=== PATIENT | male | born 1995 | race Caucasian/White ===

== ENCOUNTER 2025-01-12 21:09 | Inpatient (IN) | payer BC, SELFPAY ==
--- OUTSIDE RECORDS SUMMARY | 2025-01-12 10:46 | XMS_ITS | Continuity of Care Document ---
Author Organization [facility] Address [address] [address] [place] [address] Phone Care Team Providers Care Pet Sitter Name Role Phone Paulo Kramer MD, Kosta Dominguez Unavailabl e Allergies, Adverse Reactions, Alerts Substance Reaction Status Criticality No Known Allergies Active No Inform ation Medications Medication Instructions Dosage Effective Dates (start - stop) Status Comments balsalazide 750 mg capsule take 3 capsule by oral route 3 times every day 2250 MG - Active Needs OV and labs for further refills. VITAMIN D3 (unknown strength) Not Available - Active Procedures Procedure Date Offic/outpt E&m Estab Low-mod Routine Serum Collection Offic/outpt E&m Estab Mod-hi 2 Routine Serum Collection Immuniz Admin; 1/combo Vacc/to Flucelvax Quad 0.5 ML Routine Serum Collection Offic/outpt E&m Estab Mod-hi 2 Routine Serum Collection Bld Ct; Hg/pltlt Ct Auto/compl C-reactive Prot Comp Metabolic Panel Vitamin D; 25 Hydroxy Routine Serum Collection Hepatic Function Panel Routine Serum Collection Vitamin D; 25 Hydroxy Offic/outpt E&m Estab Mod-hi 2 Routine Serum Collection C-reactive Prot Comp Metabolic Panel Bld Ct; Hg/pltlt Ct Auto/compl Routine Serum Collection Hepatic Function Panel Vitamin D; 25 Hydroxy Immuniz Admin; 1/combo Vacc/to Pneumococcal Polysacch Vac-jaz Immuniz Admin; 1/combo Vacc/to Hep A-hep B Vaccine Adult Dose Offic/outpt E&m Estab Mod-hi 2 Immuniz Admin; 1/combo Vacc/to Hep A-hep B Vaccine Adult Dose Immuniz Admin; 2/> Sing/comb V [id number] Vaccine Office Cons New/estab Mod Routine Serum Collection C-reactive Prot Comp Metabolic Panel Hepatitis A Antibody; Igg & Ig Hep B Core Antibody Hepatitis B Surface Antibody Vitamin D; [address]; Hg/pltlt Ct Auto/compl Ag-immunoassay; Hep B Surface 9 Advance Directives Directive Yes / No Effective Date File Name No Information Encounters Encounter Description Practice Location Reason(s) For Visit Diagnoses Date Provider Providers Copied on Encounter [facility], [address] [address], [place], [id number], [place] tel:[phone] [facility] No Information 5 Paulo Brambila. [address], [place], [id number], [place]. tel:[phone] [facility] [place], [address] [address], [place], [id number], [place] tel:[phone] [facility] No Information 5 Charissa Byrd. [address], [address], [place], [place], [address], [place]. tel:[phone] Offic/outpt E&m Estab Low-mod [facility], [address] [address], [place], [place], [address], [place] tel:[phone] [facility] GI Symptoms or Concerns (chief complaint) Previous History Review (chief complaint) Ulcerative pancolitis without complicationUlce rative (chronic) pancolitis with rectal bleeding 4 Charissa Byrd. [address], [address], [place], [place], [address], [place]. tel:[phone] Referring Provider: Referral Self, USE FOR SELF REFERRALS. [facility], [address] [address], [place], [place], [address], [place] tel:[phone] [facility] No Information 4 Paulo Brambila. [address], [address], [place], [address], [place]. tel:[phone] Offic/outpt E&m Estab Mod-hi 2 [facility], [address] [address], [place], [id number], [place] tel:[phone] [facility] GI Symptoms or Concerns (chief complaint) Previous History Review (chief complaint) Ulcerative pancolitis without complication 3 Vadim Fowler. [address], [address], [place], [place], [address], [place]. tel:[phone] Referring Provider: Referral Self, USE FOR SELF REFERRALS. [facility], [address] [address], [place], [place], [address], [place] tel:[phone] [facility] No Information 3 Paulo Brambila. [address], [address], [place], [place], [address], [place]. tel:[phone] [facility], [address] [address], [place], [address], [place] tel:[phone] [facility] Ulcerative (chronic) pancolitis with rectal bleedingUlcerati ve (chronic) pancolitis without complications 0 1 Vadim Fowler. [address], [place], [address], [place]. tel:[phone] Referring Provider: Referral Self, USE FOR SELF REFERRALS. [facility], [address] [address], [place], [id number], [place] tel:[phone] [facility] Ulcerative (chronic) pancolitis with rectal bleeding 1 Sandra Angel. [address], [address], [place], [address], [place]. tel:[phone] Offic/outpt E&m Estab Mod-hi 2 [facility], [address] [address], [place], [address], [place] tel:[phone] [facility] GI Symptoms or Concerns (chief complaint) Previous History Review (chief complaint) Comment (chief complaint) Ulcerative pancolitis without complication 1 Vadim Fowler. [address] [address], [address], [place], [address], [place]. tel:[phone] Referring Provider: Referral Self, USE FOR SELF REFERRALS. [facility], [address] [address], [place], [address], [place] tel:[phone] [facility] Ulcerative (chronic) pancolitis with rectal bleeding 1 Vadim Fowler. [address], [address], [place], [address], [place]. tel:[phone] Referring Provider: Referral Self, USE FOR SELF REFERRALS. [facility], [address] [address], [place], [address], [place] tel:[phone] [facility] Ulcerative pancolitis with rectal bleeding Maxim-0 9- 1 Vadim Fowler. [address] [facility] [address], [place], [place], [address], [place]. tel:[phone] [facility], [address] [address], [place], [place], [address], [place] tel:[phone] [facility] Ulcerative pancolitis with rectal bleeding Apr-0 2-202 1 Vadim Fowler. [address] [facility] [address], [address], [place], [address], [place]. tel:[phone] [facility], [address] [address], [place], [address], [place] tel:[phone] [facility] Ulcerative (chronic) pancolitis with rectal bleeding Mar- 0 Vadim Fowler. [address] [facility] [facility], [address], [place], [address], [place]. tel:[phone] Referring Provider: Referral Self, USE FOR SELF REFERRALS. [facility], [address] [address], [place], [address], [place] tel:[phone] [facility] Ulcerative pancolitis with rectal bleeding Dec-0 - 0 Vadim Fowler. [address] [facility] [address], [address], [place], [address], [place]. tel:[phone] [facility], [address] [address], [place], [address], [place] tel:[phone] [facility] Ulcerative (chronic) pancolitis with rectal bleeding Jun- 2-202 0 Vadim Fowler. [address] [facility] [address], [place], [address], [place]. tel:[phone] Referring Provider: Referral Self, USE FOR SELF REFERRALS. Offic/outpt E&m Estab Mod-hi 2 [facility], [address] [address], [place], [place], [address], [place] tel:[phone] [facility] GI Symptoms or Concerns (chief complaint) Additional Narrative (chief complaint) Ulcerative pancolitis with rectal bleedingDietary counseling and surveillanceElev ated blood-pressure reading, w/o diagnosis of htn 0 Vadim Fowler. [address] [facility] [address], [place], [place], [address], [place]. tel:[phone] Referring Provider: Referral Self, USE FOR SELF REFERRALS. [facility], [address] [address], [place], [address], [place] tel:[phone] [facility] Ulcerative pancolitis with rectal bleeding 0 Vadim Fowler. [address] [facility] [address], [address], [place], [address], [place]. tel:[phone] [facility], [address] [address], [place], [address], [place] tel:[phone] [facility] Ulcerative (chronic) pancolitis with rectal bleeding 9 Vadim Fowler. [address] [facility] [address], [address], [place], [address], [place]. tel:[phone] Referring Provider: Referral Self, USE FOR SELF REFERRALS. [facility], [address] [address], [place], [place], [address], [place] tel:[phone] [facility] No Information 9 Vadim Fowler. [address] [facility] [address], [address], [place], [address], [place]. tel:[phone] Referring Provider: Dang Mcintyre MD, [address] [place], [address]. tel:[phone] [facility], [address] [address], [place], [address], [place] tel:[phone] [facility] No Information 9 Vadim Fowler. [address] [facility] [address], [place], [address], [place]. tel:[phone] [facility], [address] [address], [place], [address], [place] tel:[phone] [facility] No Information 9 Vadim Fowler. [address] [facility], [facility] [address], [place], [id number], [place]. tel:[phone] Referring Provider: Referral Self, USE FOR SELF REFERRALS. Offic/outpt E&m Estab Mod-hi 2 [facility], [address] [address], [place], [id number], [place] tel:[phone] [facility] GI Symptoms or Concerns (chief complaint) Ulcerative pancolitis with rectal bleeding Vadim Fowler. [address] [facility] [facility], [facility] [address], [place], [address], [place]. tel:[phone] Referring Provider: Referral Self, USE FOR SELF REFERRALS. Office Cons New/estab Mod [facility], [address] [address], [place], [id number], [place] tel:[phone] [facility] GI Symptoms or Concerns (chief complaint) Ulcerative pancolitis with rectal bleeding 9 Vadim Fowler. [address] [facility], [facility] [address], [place], [id number], [place]. tel:[phone] Referring Provider: Rich Rosas, [address], [place], [address]. tel:[phone] Family History Family Member Type Diagnosis Age At Onset Father Problem (finding) Alive and well Mother Problem (finding) Alive and well Immunizations Vaccine Date Status Comments Influenza, injectable, Madin [place] Canine Kidney, preservative free, quadrivalent administered Note: [facility] bi-direct ional interface ; Source: Other Registry Influenza, injectable, quadrivalent, MDCK, preservative and antibiotic free, 0.5 mL dosage, Flucelvax Quad administered Source: New Immuniza tion Record SARS-COV-2 (COVID-19) vaccin e, mRNA, spike protein, LNP, preservative free, 30 mcg/0.3mL dose, piotr-sucrose formulation administered Note: [facility] bi-direct ional interface ; Source: Other Registry Influenza, injectable, Madin [place] Canine Kidney, preservative free, quadrivalent administered Note: [facility] bi-direct ional interface ; Source: Other Registry SARS-COV-2 (COVID-19) vaccin e, mRNA, spike protein, LNP, preservative free, 30 mcg/0.3mL dose administered Note: [facility] bi-direct ional interface ; Source: Other Registry SARS-COV-2 (COVID-19) vaccin e, mRNA, spike protein, LNP, preservative free, 30 mcg/0.3mL dose administered Note: [facility] bi-direct ional interface ; Source: Other Registry Pneumovax 23 administered Note: [facility] bi-d irectional interface ; Source: Other Registry Pneumo (2 yrs or older)(PPV) administered Source: New Immunization Record Twinrix administered Note: [facility] bi-d irectional interface ; Source: Other Registry Hep A and Hep B administered Source: New Immunization Record Prevnar 13 administered Note: [facility] bi-d irectional interface ; Source: Other Registry Pneumococcal conjugate PCV 13 administere d Source: New Immunization Record Hep A and Hep B administered Source: New Immunization Record Seasonal, quadrivalent, recombinant, injectable influenza vaccine, preservative free administered Note: [facility] bi-direct ional interface ; Source: Other Registry Payers Payer name Insurance type Covered democrat ID Authoriza tion(s) [employer] [place] [id number] [employer] [place] [id number] [employer] [place] [id number] [employer] [place] [id number] Social History Type Description Quantity Date Captured Comments Sex Male Smoking Status No Information Chief Complaint And Reason For Visit No Information Reason For Referral Reason For Referral No Information Plan Of Treatment Date Type Action Status Goal Smoking status. Due on due Goal Vitamin D, 25-Hydroxy. Due o n due Goal DEXA Bone Density Study. Due on due Goal Influenza. Due on due Goal Hep A Vaccine (1st) due Goal Colonoscopy. Due on 025 due Goal Hep A Vaccine (2nd) due Goal Dermatology - Skin Screening . Due on due Goal Hep B Vaccine (1st) due Goal Tdap. Due on due Goal Prevnar 20. Due on 25 due Goal Hep B Vaccine (2nd) due Goal Lifestyle education regardin g diet completed Appointment Shaheed Penny BOOKED History Of Present Illness Encounter Date Complaint History Of Prese nt Illness Previous History Review PREVIOUS LY : Ulcerative pancolitis, diagnosed in August 2018. He required steroids to get him under control, but he has been on 5-ASA treatment since then and doing well now. No fever, chills, sweats, night sweats, coughing, shortness of breath, extraintestinal manifestations of inflammatory bowel disease.He is on vitamin D, but is unsure of the dose. He has been doing well on 5-ASA products. His insurance stopped covering Lialda and he switched to balsalazide. This did not seem to work as well and needed a course of prednisone. He states he only took that for about 2 weeks and then stopped it. He has continued on the balsalazide.On 02/2019, he had Pneumovax shots, is due in 2023. He has not gotten a new Shingrix vaccine.In August 2018, liver tests were elevated with bilirubin 2.1, AST 210, ALT 157, alkaline phosphatase 234. He was empirically started on azithromycin. He did undergo colonoscopy by Dr. Antunez on 10/21/2018. The terminal ileum looked normal and biopsies there were also normal. Throughout the colon, there was diffuse severe inflammation with biopsies showing moderately active chronic colitis consistent with ulcerative colitis.Apparently, during his hospitalization, his liver tests improved, not necessarily normalized. He has Gilbert's. He was started on prednisone. He never smoked. 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 Low vitamin D, on high-dose replacement recently. He has not gotten Shingrix. GI Symptoms or Concerns This is a clinic visit for Shaheed Penny for followup of prado ulcerative colitis diagnosed in August 2018.Kindly see the previous note from Dr. Abdi from 05/04/2022 for details.Patient updates me today that for the past 1 month he has been experiencing some discomfort around bedtime, especially when he lays down. No issues during the day. No diarrhea, no blood in stools. No fever. No chills. No other issues. No back pain. He takes balsalazide 750 mg 3 capsules twice daily.No change in diet, no other associations with abdominal discomfort noted. GI Symptoms or Concerns This is a 27-year-old male with ulcerative pancolitis, diagnosed in August 2018. He required steroids to get him under control, but he has been on 5-ASA treatment since then and doing well now. Currently having 2 bowel movements per day. No blood typically, except every 3 weeks, he notes a scant amount streak of dark red blood. No pain associated with this. No fever, chills, sweats, night sweats, coughing, shortness of breath, extraintestinal manifestations of inflammatory bowel disease.He is on vitamin D, but is unsure of the dose. He needs a refill of the balsalazide. Previous History Review This is a 27-year-old male with ulcerative pancolitis diagnosed in August 2018. He has been doing well on 5-ASA products. His insurance stopped covering Lialda and he switched to balsalazide. This did not seem to work as well and needed a course of prednisone. He states he only took that for about 2 weeks and then stopped it. He has continued on the balsalazide.On 02/2019, he had Pneumovax shots, is due in 2023. He has not gotten a new Shingrix vaccine.In August 2018, liver tests were elevated with bilirubin 2.1, AST 210, ALT 157, alkaline phosphatase 234. He was empirically started on azithromycin. He did undergo colonoscopy by Dr. Antunez on 10/21/2018. The terminal ileum looked normal and biopsies there were also normal. Throughout the colon, there was diffuse severe inflammation with biopsies showing moderately active chronic colitis consistent with ulcerative colitis.Apparently, during his hospitalization, his liver tests improved, not necessarily normalized. He has Gilbert's. He was started on prednisone. He never smoked. He works in commercial real estate (w/ rental apartments).Vaccinated for hepatitis A/B, PCV 13, then pneumovax in 2019. Low vitamin D, on high-dose replacement recently. He has not gotten Shingrix. Comment This is a 25-yea r-old male with ulcerative pancolitis diagnosed in August 2018. He has been doing well on 5-ASA products. His insurance stopped covering Lialda and he switched to balsalazide. This did not seem to work as well and recently needed a course of prednisone. He states he only took that for about 2 weeks and then stopped it. He has continued on the balsalazide. He is having 2 to 3 [place] type 4 bowel movements per day without blood over the last 2 months. In the morning, he notes that he feels a little discomfort in the lower abdomen like he is bloated. It goes away completely after a bowel movement. No night sweats like he has had in the past. No weight loss.On 02/2019, he had Pneumovax shots, is due in 2023. He has not gotten a new Shingrix vaccine.He thinks his insurance might cover Lialda better now than it used to. He wonders about switching back to that. Previous History Review This is a 25-year-old male with ulcerative pancolitis starting in August 2018. Liver tests were elevated with bilirubin 2.1, AST 210, ALT 157, alkaline phosphatase 234. He was empirically started on azithromycin. He did undergo colonoscopy by Dr. Antunez on 10/21/2018. The terminal ileum looked normal and biopsies there were also normal. Throughout the colon, there was diffuse severe inflammation with biopsies showing moderately active chronic colitis consistent with ulcerative colitis.Apparently, during his hospitalization, his liver tests improved, not necessarily normalized. He has Gilbert's. He was started on prednisone, he currently continues on 60 mg of prednisone a day. He was also started on mesalamine 1.2 g, 4 tablets a day. There is no family history of inflammatory bowel disease. He never smoked. He works in commercial [employer] estate ([employer]/ rental apartments).Vaccinated for hepatitis A/B, PCV 13, then pneumovax in 2019. Low vitamin D, on high-dose replacement recently. He has not gotten Shingrix. GI Symptoms or Concerns Additional Narrative This is a [age]-year-old male with ulcerative pancolitis starting in August 2018. Liver tests were elevated with bilirubin 2.1, AST 210, ALT 157, alkaline phosphatase 234. He was empirically started on azithromycin. He did undergo colonoscopy by Dr. Antunez on 10/21/2018. The terminal ileum looked normal and biopsies there were also normal. Throughout the colon, there was diffuse severe inflammation with biopsies showing moderately active chronic colitis consistent with ulcerative colitis.Apparently, during his hospitalization, his liver tests improved, not necessarily normalized. He was started on prednisone, he currently continues on 60 mg of prednisone a day. He was also started on mesalamine 1.2 g, 4 tablets a day. There is no family history of inflammatory bowel disease. He never smoked.Vaccinate for hepatitis A/B, PCV 13, then pneumovax. Low vitamin D, on high-dose replacement. GI Symptoms or Concerns This is a 24-year-old male with panulcerative colitis diagnosed in August 2018. He had been treated with prednisone and improved with that. He has then been on maintenance mesalamine. It seems the mesalamine has been helping, but it is too expensive for him. He has been off the prednisone since February. Since stopping the prednisone, the night sweats have stopped.He has occasional left lower quadrant bloating sensation that occurs about 3 times per week. This tends to occur in the evening after eating meal. It does lessen after a bowel movement. He is having 2 to 3 bowel movements per day, tend to be loose to formed, no blood. No extraintestinal manifestations of inflammatory bowel disease. We had repeated blood test and the alkaline phosphatase had completely normalized. Total bilirubin 1.7, direct bilirubin 0.3. Hepatitis B studies negative, normal TPMT, QuantiFERON negative. Last vitamin D was still low at 15 despite receiving 3 months of 50,000 units a week for the prev GI Symptoms or Concerns This is a 23-year-old male diagnosed with ulcerative pancolitis with colonoscopy in October 2018. Please refer to my previous note from 11/07/2018. Previously, he also had elevated liver tests that have been improving, unclear etiology for them being elevated. He was started on prednisone and has been on a tapering course and has been improving. He is also on 5-ASA medication as well. The abdominal pain is gone. His bowel movements continue to improve. He is only having 3 or 4 a day without any nocturnal episodes over the last couple of days. Occasionally, he notes blood in the stool. The night sweats that he has been experiencing since prednisone have been significantly improving. He is down to 5 mg of prednisone a day. He notes sensitivity with dairy products, he has had this for years, but it has been more prominent recently. His alkaline phosphatase was up at 259 at its highest, most recently 136. Testing from last visit show the QuantiFERON negative, TPMT was no GI Symptoms or Concerns This is a 23-year-old male, referred for consultation by Dr. Dang Mcintyre for consultation for recently diagnosed ulcerative colitis. The patient states that starting in August, he noted having stomach pains that would come and go. Starting the first week in October, he began having diarrhea with blood. It was not until about a week later that he went into the emergency room and was admitted to hospital on 10/18/2018. He was in the hospital until 10/22/2018. Examinations there showed thickened colon seen on CT scan of the abdomen and pelvis from 10/18/2018. Colonic wall thickening best demonstrated hepatic flexure and transverse colon. The rest of the exam looked unremarkable. White blood cell count was elevated at 15.4. Liver tests were elevated with bilirubin 2.1, AST 210, ALT 157, alkaline phosphatase 234. He was empirically started on azithromycin. He did undergo colonoscopy by Dr. Antunez on 10/21/2018. The terminal ileum looked normal and biopsies there were also normal. Thr Functional Status Date Functional Assessmen t No Information Instructions Date Instruction Additional Infor pat 1. Increase balsalaz dougie to 3 pills 3 times daily.2. Try IBgard daily as needed and see if this helps.3. Check stool for fecal calprotectin.4. IBD labs for protocol for IBD laboratories.5. Update in 4-6 weeks. If he has elevated fecal calprotectin, then we can try a short course of steroids and see if this helps. Hopefully he will not need endoscopic evaluation right away. He is open to that.6. Follow up in 6 months. Related to Ulcerative pancolitis without complication 1. Check labs today. 2. I recommend getting (2) Shingrix vaccines.3. Recheck vitamin D in 3 weeks.4. I will see if my office can help with coverage for mesalamine.5. Info provided about azathioprine6. F/U in 4 months. Call if questions or symptoms before then. Related to Ulcerative pancolitis with rectal bleeding IBD Folder Related to Ulcer ative pancolitis with rectal bleeding AZA/6-MP Related to Ulcer ative pancolitis with rectal bleeding Lifestyle education regarding di et Related to Dietary counseling and surveillance 1. Continue on mesal amine medication and tapering prednisone.2. Start vaccinations (PCV 13, hep A/B), after at least 8 weeks, pneumovax. Get the Shingrix vaccine if you can find it (check [employer]). Get flu shot when it becomes available.3. Recheck liver tests and vitamin D in 3 months.4. F/U in 6 months. Call me if symptoms are recurring before then. Related to Ulcerative pancolitis with rectal bleeding 1. Taper prednisone as discussed.2. Continue on mesalamine 4/day.3. Check labs today.4. Get results of stool tests from [facility].5. F/U in 3-4 weeks. Related to Ulcerative pancolitis with rectal bleeding IBD Folder Related to Ulcer ative pancolitis with rectal bleeding Assessments Type Assessment Date No Information Patient Care Teams Name Effective Dates (start - stop) Status Members No Information
--- OUTSIDE RECORDS SUMMARY | 2025-01-12 10:46 | XMS_ITS | Continuity of Care Document ---
Author Organization [facility] Address [address] [address] [place] [address] Phone Care Team Providers Care Sales Executive Insurance Name Role Phone Paulo Kramer MD, Kosta [...] Adult Dose Immuniz Admin; 2/> Sing/comb V [id number] Vaccine Office Cons New/estab Mod Routine Serum [...] Diagnoses Date Provider Providers Copied on Encounter [facility] [place], [address] [address], [place], [id number], [place] tel:[phone] [facility] No Information 5 Paulo Brambila. [address] [facility], [place], [id number], [place]. tel:[phone] [facility] [place], [address] [address], [place], [id number], [place] tel:[phone] [facility] No Information 5 Charissa Byrd. [address] [facility], [place], [address], [place]. tel:[phone] Offic/outpt E&m Estab Low-mod [facility], [address] [address], [place], [address], [place] tel:[phone] [facility] GI Symptoms or Concerns (chief complaint) Previous History Review (chief complaint) Ulcerative pancolitis without complicationUlce rative (chronic) pancolitis with rectal bleeding 4 Charissa Byrd. [address] [facility], [place], [place], [address], [place]. tel:[phone] Referring Provider: Referral Self, USE FOR SELF REFERRALS. [facility], [address] [address], [place], [address], [place] tel:[phone] [facility] No Information 4 Paulo Brambila. [address] [facility], [place], [address], [place]. tel:[phone] Offic/outpt E&m Estab Mod-hi 2 [facility], [address] [address], [place], [address], [place] tel:[phone] [facility] GI Symptoms or Concerns (chief complaint) Previous History Review (chief complaint) Ulcerative pancolitis without complication 3 Vadim Fowler. [address] [facility], [place], [address], [place]. tel:[phone] Referring Provider: Referral Self, USE FOR SELF REFERRALS. [facility], [address] [address], [place], [address], [place] tel:[phone] [facility] No Information 3 Paulo Brambila. [address] [facility], [place], [address], [place]. tel:[phone] [facility], [address] [address], [place], [address], [place] tel:[phone] [facility] Ulcerative (chronic) pancolitis with rectal bleedingUlcerati ve (chronic) pancolitis without complications 0 1 Vadim Fowler. [address] [facility], [place], [address], [place]. tel:[phone] Referring Provider: Referral Self, USE FOR SELF REFERRALS. [facility], [address] [address], [place], [address], [place] tel:[phone] [facility] Ulcerative (chronic) pancolitis with rectal bleeding 1 Sandra Angel. [address] [facility], [place], [address], [place]. tel:[phone] Offic/outpt E&m Estab Mod-hi 2 [facility], [address] [address], [place], [address], [place] tel:[phone] [facility] GI Symptoms or Concerns (chief complaint) Previous History Review (chief complaint) Comment (chief complaint) Ulcerative pancolitis without complication 1 Vadim Fowler. [address] [facility], [place], [address], [place]. tel:[phone] Referring Provider: Referral Self, USE FOR SELF REFERRALS. [facility], [address] [address], [place], [address], [place] tel:[phone] [facility] Ulcerative (chronic) pancolitis with rectal bleeding 1 Vadim Fowler. [address] [facility], [address], [place], [address], [place]. tel:[phone] Referring Provider: Referral Self, USE FOR SELF REFERRALS. [facility], [address] [address], [place], [address], [place] tel:[phone] [facility] Ulcerative pancolitis with rectal bleeding Maxim-0 9- 1 Vadim Fowler. [address] [facility] [address], [place], [place], [address], [place]. tel:[phone] [facility], [address] [address], [place], [address], [place] tel:[phone] [facility] Ulcerative pancolitis with rectal bleeding Apr-0 2-202 1 Vadim Fowler. [address] [facility] [address], [place], [address], [place]. tel:[phone] [facility], [address] [address], [place], [address], [place] tel:[phone] [facility] Ulcerative (chronic) pancolitis with rectal bleeding Mar- 0 Vadim Fowler. [address] [facility], [place], [address], [place]. tel:[phone] Referring Provider: Referral Self, USE FOR SELF REFERRALS. [facility], [address] [address], [place], [address], [place] tel:[phone] [facility] Ulcerative pancolitis with rectal bleeding Dec-0 - 0 Vadim Fowler. [address] [facility] [address], [place], [address], [place]. tel:[phone] [facility], [address] [address], [place], [address], [place] tel:[phone] [facility] Ulcerative (chronic) pancolitis with rectal bleeding Jun- 2-202 0 Vadim Fowler. [address] [facility] [address], [address], [place], [address], [place]. tel:[phone] Referring Provider: Referral Self, USE FOR SELF REFERRALS. Offic/outpt E&m Estab Mod-hi 2 [facility], [address] [address], [place], [address], [place] tel:[phone] [facility] GI Symptoms or Concerns (chief complaint) Additional Narrative (chief complaint) Ulcerative pancolitis with rectal bleedingDietary counseling and surveillanceElev ated blood-pressure reading, w/o diagnosis of htn 0 Vadim Fowler. [address] [facility] [address], [address], [place], [address], [place]. tel:[phone] Referring Provider: Referral Self, USE FOR SELF REFERRALS. [facility], [address] [address], [place], [address], [place] tel:[phone] [facility] Ulcerative pancolitis with rectal bleeding 0 Vadim Fowler. [address] [facility] [address], [address], [place], [address], [place]. tel:[phone] [facility], [address] [address], [place], [address], [place] tel:[phone] [facility] Ulcerative (chronic) pancolitis with rectal bleeding 9 Vadim Fowler. [address] [facility] [address], [address], [place], [address], [place]. tel:[phone] Referring Provider: Referral Self, USE FOR SELF REFERRALS. [facility], [address] [address], [place], [address], [place] tel:[phone] [facility] No Information 9 Vadim Fowler. [address] [facility] [address], [address], [place], [place], [address], [place]. tel:[phone] Referring Provider: Dang Mcintyre MD, [address] [place], [address]. tel:[phone] [facility], [address] [address], [place], [address], [place] tel:[phone] [facility] No Information 9 Vadim Fowler. [address] [facility] [address], [place], [place], [address], [place]. tel:[phone] [facility], [address] [address], [place], [address], [place] tel:[phone] [facility] No Information 9 Vadim Fowler. [address] [facility], [facility], [place], [address], [place]. tel:[phone] Referring Provider: Referral Self, USE FOR SELF REFERRALS. Offic/outpt E&m Estab Mod-hi 2 [facility], [address] [address], [place], [address], [place] tel:[phone] [facility] GI Symptoms or Concerns (chief complaint) Ulcerative pancolitis with rectal bleeding Vadim Fowler. [address] [facility], [facility], [place], [address], [place]. tel:[phone] Referring Provider: Referral Self, USE FOR SELF REFERRALS. Office Cons New/estab Mod [facility], [address] [address], [place], [address], [place] tel:[phone] [facility] GI Symptoms or Concerns (chief complaint) Ulcerative pancolitis with rectal bleeding 9 Vadim Fowler. [address] [facility], [facility], [place], [address], [place]. tel:[phone] Referring Provider: Rich Rosas, [address], [place], [address]. tel:[phone] Family History Family Member Type Diagnosis Age At Onset Father Problem (finding) Alive and well Mother Problem (finding) Alive and well Immunizations Vaccine Date Status Comments Influenza, injectable, Madin Maryneal Canine Kidney, preservative free, quadrivalent administered Note: [...] ID Authoriza tion(s) [employer] [place] [id number] [employer] [place] [id number] [employer] [place] BL [id number] Blue [employer] [place] BL [id number] Social History Type Description Quantity Date Captured [...] smoked. 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 He is having 2 to 3 [place] type 4 bowel movements per day without [...] He never smoked. 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 Get flu shot when it becomes available.3. Recheck liver tests and vitamin D in 3 months.4. F/U in 6 months. Call me if symptoms are recurring before then. Related to Ulcerative pancolitis with rectal bleeding 1. Taper prednisone as discussed.2. Continue on mesalamine 4/day.3. Check labs today.4. Get results of stool tests from [place].5. F/U in 3-4 weeks. Related to Ulcerative pancolitis with rectal bleeding IBD Folder Related to Ulcer ative pancolitis with rectal bleeding Assessments Type Assessment Date No Information Patient Care Teams Name Effective Dates (start - stop) Status Members No Information
[2025-01-12 21:11] VITALS: BP 139/80; PULSE 60; RESP 16; TEMP 36.8; O2SAT 97; BMI 25.5
--- OUTSIDE RECORDS SUMMARY | 2025-01-12 21:11 | XMS_ITS | Clinical Summary ---
Author Organization [facility] Address [address] [place] [address] Care Team Providers Care Nursing Secretary Name Role Phone Dang Mcintyre MD Primary Care Provider + Allergies No known active allergies Medications predniSONE (DELTASONE) 20 mg tabletIndication s:Ulcerative pancolitis without complication (HC) Take 3 tablets by mouth once daily with a meal. 90 tablet 1 9 Active Additional Information Patient not taking.Reported on 01/12/2025 mesalamine (LIALDA) 1.2 gram Delayed-Release tabletIndication s:Ulcerative pancolitis without complication (HC) Take 4 tablets by mouth once daily with a meal. 120 tablet 11 9 Active Additional Information Patient not taking.Reported on 01/12/2025 balsalazide (COLAZAL) 750 mg capsule Take 3 Capsules by mouth every 8 hours. 4 Active Active Problems Problem Noted Date Diagnosed Date Ulcerative pancolitis without complication 10/26 Overview (10/26/2018): Colonoscopy 10/2018 severe pancolitis s/p right shoulder arthrosco pic [facility] reconstruction 12/22/[address] Wood 12/30/2016 Right Shoulder instability, Anterior 02/17/2016 Acute pain of right shoulder 02/17/2016 Right Scapular dyskinesis 02/17/2016 Encounters Date Type Department Care Team Description 01/12/2025 12:20 PM CDT Office Visit [facility] [address] [id number] Bob Vences PA Abdominal Pain (Sharp mid abdominal pain x 4 days. Pt denies nausea, vomiting, constipation and diarrhea. States a decreased appetite, tender to touch and pain when laying down. Hx of Ulcerative Colitis but reports it does not feel like a flare up. ) 01/12/2025 Travel from Last 3 Months Family History Medical History Relation Name Comments Good Health Brother 1 Good Health Brother 2 Good Health Brother 3 Good Health Father Good Health Mother Good Health Sister Relation Name Status Comments Brother 1 Brother 2 Brother 3 Father Mother Sister Social History Tobacco Use Types Packs/Day Years Used Date Smoking Tobacco: Never Smokeless Tobacco: Never Tobacco Cessation:Counseling Given: Yes Alcohol Use Standard Drinks/Week Comments Yes 0 (1 standard drink = 0.6 oz pur e alcohol) 6-7 beers per month Social Connections Answer Date Recorded Do you often feel lonely or isolated from those around you? 0 01/12/2025 Alcohol Use Answer Date Recorded How often do you have a drink containing alcohol ? 0 01/12/2025 Average Number of Drinks Not on file 025 Frequency of Binge Drinking Not on file 06/2024 Financial Resource Strain Answer Date R ecorded Difficulty of Paying Living Expenses 3 01/12/2025 Difficulty of Paying Living Expenses Not on file 01/12/2025 Food Insecurity Answer Date Recorded Do you worry your food will run out before you are able to buy more? 1 01/12/2025 Transportation Needs Answer Date Record ed Does lack of transportation keep you from medica l appointments? 1 01/12/2025 Does lack of transportation keep you from work, meetings or getting things that you need? 1 01/12/2025 Housing Stability Answer Date Recorded What is your housing situation today? 1 01/12/2025 Utilities Answer Date Recorded Do you have trouble paying f or utilities (for example, heat, electricity, water, phone)? 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 Gender Identity Not on file Sexual Orientation Not on file Occupation Industry Job Start Date Job End Date student Not on file Not on file Not on file Obstetrics History Last Filed Vital Signs Vital Sign Reading Time Taken Comments Blood Pressure 129/74 01/12/2025 12:33 PM CDT Pulse 61 01/12/2025 12:31 PM CDT Temperature 36.7 C (98 F) 01/12/2025 12:31 PM CDT Respiratory Rate 15 01/12/2025 12:31 PM CDT Oxygen Saturation 96% 01/12/2025 12:31 PM CDT Inhaled Oxygen Concentration - - Weight 85.3 kg (188 lb 2 oz) 10/25/2018 1:07 PM CDT Height 190 cm (6' 2.8) 10/25/2018 1:07 PM CDT Body Mass Index 23.64 10/25/2018 1:07 PM CDT Plan of Treatment Health Maintenance Due Date Last Done Comments Tetanus booster 2004 Depression screening for age 12+ 2005 HIV for age 15-65 2008 Hepatitis C screening for ag e 18-79 2011 Hepatitis B series for 19+ ( 1 of 3 - 19+ 3-dose series) 2012 BMI (ht and wt on same day) for age 18+ 10/26/2019 10/25/2018, 04/24/2015 HPV series for age 9-45 (1 - 3-dose SCDM series) 2020 COVID-19 vaccine series ( season) 2024 05/27/2021, 07/30/2020, 07/05/2020 Influenza Vaccine (#1) 2024 RSV vaccine for adults or (1 - 1-dose 75+ series) 2068 Pneumococcal series for age 6-49 Aged Out No longer eligible b ased on patient's age to complete this topic Procedures Procedure Name Priority Date/Time Associated Diagnosis Comments CBC WITH AUTO DIFFERENTIAL Routine 01/12/2025 1:09 AM CDT Abdominal pain, RLQ (right lower quadrant) ISTAT CHEM 8 Routine 01/12/2025 1:09 AM CDT Abdominal pain, RLQ (right lower quadrant) CBC WITH AUTO DIFFERENTIAL Routine 01/12/2025 1:09 AM CDT Abdominal pain, RLQ (right lower quadrant) from Last 3 Months Results * (ABNORMAL) CBC WITH AUTO DIFFERENTIAL (01/12/2025 1:09 AM CDT) [facility] WHITE BLOOD CELL COUNT 10.4 3.8 - 10.8 Thousand/u L 01/12/2025 1:15 PM CDT [facility] RED BLOOD CELL COUNT 4.44 4.20 - 5.80 Million/uL 01/12/2025 1:15 PM CDT [facility] HEMOGLOBIN 13.0(L) 13.2 - 17.1 g/dL 01/12/2025 1:15 PM CDT [facility] HEMATOCRIT 38.8 38.5 - 50.0 % 01/12/2025 1:15 PM CDT [facility] MCV 87.4 80.0 - 100.0 fL 01/12/2025 1:15 PM CDT [facility] MCH 29.3 27.0 - 33.0 pg 01/12/2025 1:15 PM CDT [facility] MCHC 33.5 32.0 - 36.0 g/dL 01/12/2025 1:15 PM CDT [facility] Comment: For adults, a slight decrease in the calculated MCHC value (in the range of 30 to 32 g/dL) is most likely not clinically significant; however, it should be interpreted with caution in correlation with other red cell parameters and the patient's clinical condition. RDW 11.7 11.0 - 15.0 % 01/12/2025 1:15 PM CDT [facility] PLATELET COUNT 190 140 - 400 Thousand/u L 01/12/2025 1:15 PM CDT [facility] MPV 9.9 7.5 - 12.5 fL 01/12/2025 1:15 PM CDT [facility] NEUTROPHILS 74.3 % 01/12/2025 1:15 PM CDT [facility] LYMPHOCYTES 15.0 % 01/12/2025 1:15 PM CDT [facility] MONOCYTES 9.0 % 01/12/2025 1:15 PM CDT [facility] EOSINOPHILS 1.6 % 01/12/2025 1:15 PM CDT [facility] BASOPHILS 0.1 % 01/12/2025 1:15 PM CDT [facility] ABSOLUTE NEUTROPHILS 7727 1500 - 7800 cells/uL 01/12/2025 1:15 PM CDT [facility] ABSOLUTE LYMPHOCYTES 1560 850 - 3900 cells/uL 01/12/2025 1:15 PM CDT [facility] ABSOLUTE MONOCYTES 936 200 - 950 cells/uL 01/12/2025 1:15 PM CDT [facility] ABSOLUTE EOSINOPHILS 166 15 - 500 cells/uL 01/12/2025 1:15 PM CDT [facility] ABSOLUTE BASOPHILS 10 0 - 200 cells/uL 01/12/2025 1:15 PM CDT [facility] Blood BLOOD SPECIMEN / Unknown [facility] / Unknown 01/12/2025 1:09 AM CDT 01/12/2025 1:01 PM CDT Bob GUTHRIE HEMATOLOGY Final R esult [facility] [address] [id number], [address] [address] * ISTAT CHEM 8 BMP (01/12/2025 1:09 AM CDT) [facility] POCT, SODIUM, ISTAT 139 138 - 146 mmol/L 01/12/2025 1:17 PM CDT [facility] POCT, POTASSIUM, ISTAT 3.9 3.5 - 4.9 mmol/L 01/12/2025 1:17 PM CDT [facility] POCT, CHLORIDE, ISTAT 102 98 - 109 mmol/L 01/12/2025 1:17 PM CDT [facility] POCT, CARBON DIOXIDE, ISTAT 25 24 - 29 mmol/L 01/12/2025 1:17 PM CDT [facility] POCT, GLUCOSE ISTAT 96 70 - 105 mg/dL 01/12/2025 1:17 PM CDT [facility] POCT, CALCIUM, IONIZED, ISTAT 4.8 4.5 - 5.3 mg/dL 01/12/2025 1:17 PM CDT [facility] POCT, UREA NITROGEN (BUN) ISTAT 9 8 - 26 mg/dL 01/12/2025 1:17 PM CDT [facility] POCT,CREATININ E, ISTAT 1.0 0.6 - 1.3 mg/dL 01/12/2025 1:17 PM CDT [facility] Blood BLOOD SPECIMEN / Unknown [facility] / Unknown 01/12/2025 1:09 AM CDT 01/12/2025 1:01 PM CDT Bob GUTHRIE CHEMISTRY Final R esult [facility] [address] [place] [address], [facility] [address] [place] [address] from Last 3 Months Insurance [facility] [place] Care Teams Nursing Secretary Relationship Specialty Start Date End Date Dang Mcintyre MD [address] [place] [address] PCP - General Family Practice 10/25/18
--- OUTSIDE RECORDS SUMMARY | 2025-01-12 21:11 | XMS_ITS | Clinical Summary ---
Author Organization [employer] Address [address] [place] [address] Care Team Providers Care Frame Changer Name Role Phone Unavailable Primary Care Provider Unavailabl e Allergies No known active allergies Medications glycerin (ADULT) [address] 1 suppository rectally daily as needed for constipation Active Active Problems No known active problems Immunizations Immunization Administration Dates Next Due Influenza Vaccine 18-64 (Flublok) 04/26/2018 Social History Tobacco Use Types Packs/Day Years Used Date Smoking Tobacco: Never Smokeless Tobacco: Never Alcohol Use Standard Drinks/Week Comments Yes 0 (1 standard drink = 0.6 oz pur e alcohol) 4-5 times per week Adolescent Education Answer Date Record ed Getting School Help Needed Not on file 01/26 Sex and Gender Information Value Date Recorded Sex Assigned at Not on file 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 Gender Identity Not on file Sexual Orientation Not on file Last Filed Vital Signs Vital Sign Reading Time Taken Comments Blood Pressure 137/83 10/03/2018 4:15 PM CDT Pulse 62 10/03/2018 4:15 PM CDT Temperature 36.9 C (98.4 F) 10/03/2018 4:15 PM CDT Respiratory Rate 16 05/18/2018 11:42 AM SANDWICH WRAPPER Oxygen Saturation 99% 10/03/2018 4:15 PM CDT Inhaled Oxygen Concentration - - Weight 92.1 kg (203 lb) 10/03/2018 4:15 PM CDT Height 185.4 cm (6' 1) 05/18/2018 11:42 AM SANDWICH WRAPPER Body Mass Index 26.78 05/18/2018 11:42 AM SANDWICH WRAPPER Plan of Treatment Health Maintenance Due Date Last Done Comments ADVANCE CARE PLANNING 1993 ANNUAL REVIEW OF HM ORDERS 1993 YEARLY PREVENTIVE VISIT 1996 HEPATITIS C SCREENING 2011 DTAP/TDAP/TD VACCINE (1 - Tdap) 2018 HEPATITIS B VACCINE (2 of 3 - Hep B Twinrix 3-dose series) 02/10/2019 01/13/2019 PHQ-2 (once per calendar year) 2024 COVID-19 VACCINE (4 - 2024-2 6 season) 2024 05/27/2021, 07/30/2020, 07/05/2020 INFLUENZA VACCINE (#1) 2024 , 02/02/2020, 04/26/2018 ZOSTER VACCINE (1 of 2) 2043 HIV SCREENING Completed 05/18/2018 PNEUMOCOCCAL VACCINE: PEDIATRICS (0 to 5 YEARS) AND AT-RISK PATIENTS (6 to 49 YEARS) Aged Out 02/24/2019, 12/14/2018 No longer eligible based on patient's age to complete this topic HPV VACCINE (No Doses Required) Completed MENINGITIS VACCINE Aged Out No longer eligible based on patient's age to complete this topic Procedures Procedure Name Priority Date/Time Associated Diagnosis Comments HIV ANTIGEN ANTIBODY COMBO Routine 05/18/2018 12:06 PM SANDWICH WRAPPER Routine screening for STI (sexually transmitted infection) from Last 3 Months or Most Recently Relevant to Health Maintenance Results * HIV Antigen Antibody Combo (05/18/2018 12:06 PM SANDWICH WRAPPER) HIV Antigen Antibody Combo Nonreactive NR^Nonrea ctive 05/18/2018 7:46 PM SANDWICH WRAPPER [facility] Comment:HIV-1 p24 Ag & HIV-1 /HIV-2 Ab Not Detected Blood specimen (specimen) 05/18/2018 12:06 PM SANDWICH WRAPPER 05/18/2018 12:07 PM SANDWICH WRAPPER Mal Mcknight MD LAB - BLOOD BJORN DALTON Final Result [facility] [address] [place] [address] from Last 3 Months or Most Recently Relevant to Health Maintenance Insurance [address] [employer] [facility] [place] [id number] [facility]
--- OUTSIDE RECORDS SUMMARY | 2025-01-12 21:11 | XMS_ITS | Clinical Summary ---
Author Organization [facility] Address [address] [place] [address] Care Team Providers Care Utility Aide Name Role Phone Pcp, Pt Declines MD Primary Care Provider [phone] Source Comments You are receiving this document as you are listed as the primary care provider,follow-up provider, or the patient has been referred to you for consultation.This is in compliance with the Medicare and[place] [employer] EHR Incentive Program,which states Providers who transition their patient to another setting of careor provider of care or refers their patient to another provider of care shouldprovide summary care record for each transition of care or referral. [facility] Allergies No known active allergies Medications mesalamine (LIALDA) 1.2 g enteric coated tablet Take 1 Tablet (1.2 g) by mouth daily with meal. Active doxepin (SINEQUAN) 25 MG capsule Take 1-2 tabs at bedtime as needed. 60 Capsule 1 03/13/2020 Active balsalazide (COLAZAL) 750 MG capsule Take 3 Capsules (2,250 mg) by mouth three times a day. 05/24/2023 Active Active Problems Problem Noted Date Diagnosed Date Ulcerative pancolitis without complication 10/26 Overview (05/28/2023): Colonoscopy 10/2018 severe pancolitis Immunizations Immunization Administration Dates Next Due Flublok (RIV4) 04/26/2018 HepA-HepB (T[place]X, 18+ yrs) 01/13/2019 Influenza (Flucelvax), Preserv Free QIV 05/04/19,03/13/2021 Influenza IIV4 (Quadrivalent) 0.5mL (12004) 01/11 PCV13 (Prevnar) 12/14/2018 PPSV23 (Pneumovax) 02/24/2019 Pfizer Monovalent 12+ 05/27/2021 Pfizer Monovalent 12+ Purple Top 07/30/2020,06/11 Social History Tobacco Use Types Packs/Day Years Used Date Smoking Tobacco: Never Smokeless Tobacco: Never Tobacco Cessation:Counseling Given: Not Answered Sex and Gender Information Value Date Recorded Sex Assigned at Not on file Legal Sex Male 9:19 AM CDT Gender Identity Not on file Sexual Orientation Not on file Last Filed Vital Signs Vital Sign Reading Time Taken Comments Blood Pressure 142/75 05/28/2023 2:59 PM CAL[employer]RATION LABORATORY TECHNICIAN Pulse 58 05/28/2023 2:59 PM CALIBRATION LABORATORY TECHNICIAN Temperature - - Respiratory Rate - - Oxygen Saturation - - Inhaled Oxygen Concentration - - Weight 94.8 kg (209 lb) 05/28/2023 2:59 PM CALIBRATION LABORATORY TECHNICIAN Height 188 cm (6' 2) 05/28/2023 2:59 PM CALIBRATION LABORATORY TECHNICIAN Body Mass Index 26.83 05/28/2023 2:59 PM CALIBRATION LABORATORY TECHNICIAN Plan of Treatment Health Maintenance Due Date Last Done Comments Hep C Screening (Preventive Services) 1993 HIV Screening (Preventive Services) 2009 Adult Preventive Visit 2011 DTaP/Tdap/Td Vaccine (1 - Tdap) 2012 HepA Vaccine (2 of 3 - Hep A Twinrix risk 3-dose series) 02/10/2019 01/13/2019 HepB Vaccine (2) 02/10/2019 01/13/2019 HPV Vaccine (1 - 3-dose SCDM series) 2020 COVID-19 Vaccine (4 - season) 2024 05/27/2021, 07/30/2020, 07/05/2020 Influenza Vaccine (#1) 2024 , 03/13/2021, 02/02/2020, Additional history exists Zoster/Shingles Vaccine (1 of 2) 2043 Pneumococcal Vaccine Aged Out 02/24/2019, 12/15/19 19 No longer eligible based on patient's age to complete this topic Hib Vaccine Aged Out No longer eligi ble based on patient's age to complete this topic IPV (Polio) Vaccine Aged Out No longe r eligible based on patient's age to complete this topic MCV4 Vaccine Aged Out No longer eligi ble based on patient's age to complete this topic Meningococcal B Vaccine Aged Out No l onger eligible based on patient's age to complete this topic Insurance [phone] [place] [address] [facility] Care Teams Utility Aide Relationship Specialty Start Date End Date Pcp, Pt MD Sylvia [place], [place] [phone] PCP - General 01/15/20
--- NOTE | 2025-01-12 21:31 | ED.ABDPAIN ---
HPI - Abdominal Pain General Time Seen by Provider: 21:31 Date Seen: 01/12/25 Chief Complaint: Abdominal Pain Stated Complaint: abdominal pain Time Seen by Provider: 01/12/25 21:22 Source: patient and RN notes reviewed Mode of arrival: ambulatory Limitations: no limitations History of Present Illness HPI narrative: This 29-year-old male is ambulatory into the ED with concern of needing a CT of his abdomen for abdominal pain. He has had periumbilical to right lower quadrant abdominal pain starting on Wednesday, has continued to progress through the week. His appetite has been diminished but no nausea or vomiting. No fevers or chills. No diarrhea, had a normal bowel movement this morning. No urinary symptoms. He is on a medication starting with AB for his ulcerative colitis. He was having abdominal pain and diarrhea, was diagnosed 5 years ago. He does not feel like these symptoms are ulcerative colitis. He went to an urgent care in the [facility] where he works, was there about noon. States his blood work looked normal. He did not have any imaging, they did not have the capacity to do imaging there. He has had no prior abdominal surgery. His chart lists balsalazide for which he is treated for for ulcerative colitis. MD elicited complaint: abdominal pain Related Data Home Medications ?Medication ?Instructions ?Recorded ?Confirmed balsalazide 750 mg capsule 2,250 mg PO 3XD 01/12/25 01/12/25 Allergies Allergy/AdvReac Type Severity Reaction Status Date / Time No Known Drug Allergies Allergy Verified 01/12/25 23:09 Review of Systems Status of ROS Reports: 6 or more systems reviewed and unremarkable except as noted in History and below [facility] Medical History Colitis ?K52.9 - Noninfective gastroenteritis and colitis, unspecified (ICD-10) GERD (gastroesophageal reflux disease) ?K21.9 - Gastro-esophageal reflux disease without esophagitis (ICD-10) Surgical History S/P anterior Bankart repair of left shoulder (02/19/11) ?Z98.890 - Other specified postprocedural states (ICD-10) ?Z87.828 - Personal history of other (healed) physical injury and trauma (ICD-10) History of arthroscopy of right shoulder (~12/2016) ?Z98.890 - Other specified postprocedural states (ICD-10) History of arthroscopy of right shoulder (12/20/19) ?Z98.890 - Other specified postprocedural states (ICD-10) Status post labral repair of shoulder (02/07/20) ?Z98.890 - Other specified postprocedural states (ICD-10) Social History Smoking Status: Never smoker Second hand tobacco smoke exposure: No How often do you have a drink containing alcohol: never AUDIT-C Alcohol total score: 0 Non-prescribed substance use: denies use Exam Const: Vital Signs, click to edit/add: Vital Signs - 24 hr 01/12/25 21:11 Temperature 98.2 F Pulse Rate [Pulse Oximeter] 60 Respiratory Rate 16 Blood Pressure [Ri ght Upper Arm] 139/80 Pulse Oximetry 97 Oxygen Delivery Me thod Room Air This 29-year-old male is alert, interactive, no apparent distress. Sclera clear, face atraumatic, speech is normal, able speak in complete sentences. Neck slender, no adenopathy or masses. Lungs are clear, good air entry, no wheezing or crackles, no tachypnea, no accessory muscle use. CV regular rate and rhythm, no murmur. Abdomen is thin, slender, normal bowel sounds. He really does not have any significant tenderness when I am palpating. I really do not appreciate any paraumbilical or significant right lower quadrant tenderness. He certainly has no rebound or guarding. No organomegaly or masses noted. Documenting provider has reviewed patient's vital signs: yes Course Course ED Course: Given his history, I feel that is prudent to proceed with CT imaging despite lack of significant abdominal pain for me at this time. Will place an IV, obtain full complement of labs. I am sure he is worried about appendicitis but given 5 days symptoms and his current presentation, I am less inclined to think that it is appendicitis. CT imaging will certainly help us evaluate that further. It could be a flare of his ulcerative colitis despite his medicine. He really looks overall quite well. He is afebrile, hemodynamically stable. Will get the CT and the labs and guide therapy accordingly. He declines any need for pain medication at this time Reevaluation(s) Time of Reevaluation #1: 11:12 Reevaluation #1: Did update the patient that his CT is showing appendicitis. The surgeon is reviewing his imaging, will talk to him further once I have spoken with her again. Time of Reevaluation #2: 23:35 Reevaluation #2: Have confirmed with patient the plan for surgery tomorrow morning. I have ordered antibiotics, IV fluids. He knows he will be NPO after midnight. Client and any need for pain management at this time. Consultations Consultation #1: Did speak with general surgeon Dr. Hurst. I unfortunately did have to get off the phone to talk to Neurology. She is going to review the imaging and will call me back. 11:18 p.m.: Have spoken with Dr. Hurst. This patient needs to be admitted, she will plan on doing surgery tomorrow morning, we will start Zosyn. The hospitalist will be contacted to follow patient. Time: 23:02 Consultation #2: Have spoken with the hospitalist Dr. Clayton. He will accept on behalf of the hospitalist service. I will likely need to talk to [facility] as they will probably be doing the admission on this patient. When he signs over, he can have them contact me. Time: 23:21 Vital Signs Vital signs: Initial Vital Signs Temperature 98.2 F 01/12/25 21:11 Temperature Source Temporal Artery Scan 01/12/25 21:11 Pulse Rate 60 01/12/25 21:11 Respiratory Rate 16 01/12/25 21:11 Blood Pressure 139/80 01/12/25 21:11 Blood Pressure Mean 99 01/12/25 21:11 Pulse Oximetry 97 01/12/25 21:11 Oxygen Delivery Method Room Air 01/12/25 21:11 Vital Signs Temperature 98.2 F 01/12/25 21:11 Pulse Rate 60 01/12/25 21:11 Respiratory Rate 16 01/12/25 21:11 Blood Pressure 139/80 01/12/25 21:11 Pulse Oximetry 97 01/12/25 21:11 Oxygen Delivery Method Room Air 01/12/25 21:11 Temperature 98.2 F 01/12/25 21:11 Pulse Rate 60 01/12/25 21:11 Respiratory Rate 16 01/12/25 21:11 Blood Pressure 139/80 01/12/25 21:11 Pulse Oximetry 97 01/12/25 21:11 Oxygen Delivery Method Room Air 01/12/25 21:11 MDM - Abdominal Pain Lab Data Attestation: I reviewed the patient's lab results. Labs: Lab Results 01/12/25 01/12/25 Range/Units 21:37 21:45 WBC 11.59 H (4.50-11.00) K/uL RBC 4.52 (4.30-5.90) m/uL Hgb 13.1 L (13.5-17.5) gm/dL Hct 39.4 (37.0-53.0) % MCV 87 (80-100) fL MCH 29 (26-34) pg MCHC 33 (32-36) gm/dL RDW Coeff of Juan C 11.7 (11.5-15.5) % Plt Count 199 (140-440) K/uL Neut % (Auto) 69.3 (42.0-72.0) % Lymph % (Auto) 19.8 L (20-44) % [place] % (Auto) 9.0 (0.0-11.0) % Eos % (Auto) 1.6 (0.0-7.0) % Baso % (Auto) 0.1 (0.0-3.0) % Neut # (Auto) 8.00 H (1.7-7.0) K/uL Lymph # (Auto) 2.30 (0.90-2.90) K/uL [place] # (Auto) 1.00 H (0.00-0.90) K/UL Eos # (Auto) 0.20 (0.00-0.50) K/uL Baso # (Auto) 0.00 (0.00-0.30) K/uL Abs Immat Gran (auto) 0.00 (0.00-0.30) K/uL Imm/Tot Granulo (auto) 0.2 % Sodium 138 (135-149) mmol/L Potassium 4.0 (3.6-5.1) mmol/L Chloride 102 (96-114) mmol/L Carbon Dioxide 30 (20-32) mmol/L Anion Gap 6 L (7-15) mEq/L BUN 15 (5-24) mg/dL Creatinine 1.0 (0.5-1.5) mg/dL Estimated Creat Clear 120.96 Estimated GFR 103 ml/min Glucose 101 (60-115) mg/dL Lactate 0.6 (0.5-1.9) mmol/L Calcium 9.1 (8.4-10.6) mg/dL Total Bilirubin 0.8 (0.1-1.5) mg/dL AST 32 (12-35) U/L ALT 17 (4-50) U/L Alkaline Phosphatase 94 (40-150) U/L C-Reactive Protein 5.9 H (0.5-1.0) mg/dL Total Protein 7.9 (6.0-8.3) g/dL Albumin 4.2 (3.3-5.0) g/dL Lipase 73 (23-300) U/L Urine Color Yellow (Yellow) Urine Appearance Clear (Clear) Urine pH 7.5 (5.0-8.5) Ur Specific [place] 1.020 (1.000-1.030) Urine Protein Negative (Negative) Urine Glucose (UA) Negative (Negative) Urine Ketones Negative (Negative) Urine Blood 3+ A (Negative) Urine Nitrite Negative (Negative) Urine Bilirubin Negative (Negative) Urine Urobilinogen 0.2 (0.2-1.0) Ur Leukocyte Esterase Negative (Negative) Urine RBC 0-2 (0-2) Urine WBC 5-10 A (0-5) Ur Squamous Epith Cells None (None-Few) Urine Bacteria None (None) Imaging Data CT scan - abdomen: Attestation: I have reviewed the pertinent imaging results. Radiologist's impression: Patient: VIOLA HAYWARD Facility:?[facility] Patient ID:?[id number] Site Patient ID:?[id number]. Site :?[id number] Study:?CT-Abdomen/Pelvis W ISOVUE 370-01/12/2025 10:30:57 PM Ordering Physician:Oleg Vigil Final Report: INDICATION: Right lower quadrant/periumbilical pain. History of ulcerative colitis. TECHNIQUE: CT abdomen and pelvis acquired with 100 cc Omnipaque 350 IV contrast. COMPARISON: October 18, 2018. FINDINGS: Lower chest: Scattered atelectasis. Liver: Unremarkable. Normal in size and attenuation. No suspicious masses. Gallbladder and bile ducts: Unremarkable. No stones or inflammation. No biliary dilatation. Pancreas: Unremarkable. No mass or inflammation. Spleen: Unremarkable. Normal in size. No masses. Adrenal glands: Unremarkable. No nodules. Kidneys: Unremarkable. No suspicious masses, stones, or hydronephrosis. GI tract: Moderately distended fluid-filled appendix with hyperemia and periappendiceal inflammatory stranding. No bowel obstruction. Vasculature: Abdominal aorta is normal in caliber. Mesenteric arteries are patent. Lymph nodes: Multiple mildly enlarged ileocolic lymph nodes, likely reactive. Peritoneum/Abdominal Wall: Unremarkable. No sign of mass or infiltration. No free air or significant free fluid. Pelvis: Unremarkable. Bones: Unremarkable for age. IMPRESSION: Findings suggestive of acute uncomplicated appendicitis. No drainable fluid collections. Multiple mildly enlarged ileocolic lymph nodes, likely reactive. Please note that all CT scans at this facility use dose modulation, iterative reconstruction, and/or weight-based dosing when appropriate to reduce radiation dose to as low as reasonably achievable. Dictated by Burt Sheffield MD @ 01/12/2025 10:58:21 PM (Electronic Signature) Discharge Plan Discharge Clinical Impression: Acute appendicitis Qualifiers: Acute appendicitis type: unspecified acute appendicitis type Qualified Code(s): K35.80 - Unspecified acute appendicitis Ulcerative colitis Qualifiers: Ulcerative colitis location: unspecified ulcerative colitis location Digestive disease complication type: without complication Qualified Code(s): K51.90 - Ulcerative colitis, unspecified, without complications Patient Disposition: Admitted As Inpatient
--- NOTE | 2025-01-12 21:36 | CRLHL7_ITS ---
For Patients: As a result of the Century Cures Act, medical imaging exams and procedure reports are released immediately into your electronic medical record. You may view this report before your referring provider. If you have questions, please contact your health care provider. INDICATION: Right lower quadrant/periumbilical pain. History of ulcerative colitis. TECHNIQUE: CT abdomen and pelvis acquired with 100 cc Omnipaque 350 IV contrast. COMPARISON: October 18, 2018. FINDINGS: Lower chest: Scattered atelectasis. Liver: Unremarkable. Normal in size and attenuation. No suspicious masses. Gallbladder and bile ducts: Unremarkable. No stones or inflammation. No biliary dilatation. Pancreas: Unremarkable. No mass or inflammation. Spleen: Unremarkable. Normal in size. No masses. Adrenal glands: Unremarkable. No nodules. Kidneys: Unremarkable. No suspicious masses, stones, or hydronephrosis. GI tract: Moderately distended fluid-filled appendix with hyperemia and periappendiceal inflammatory stranding. No bowel obstruction. Vasculature: Abdominal aorta is normal in caliber. Mesenteric arteries are patent. Lymph nodes: Multiple mildly enlarged ileocolic lymph nodes, likely reactive. Peritoneum/Abdominal Wall: Unremarkable. No sign of mass or infiltration. No free air or significant free fluid. Pelvis: Unremarkable. Bones: Unremarkable for age. IMPRESSION: Findings suggestive of acute uncomplicated appendicitis. No drainable fluid collections. Multiple mildly enlarged ileocolic lymph nodes, likely reactive. Please note that all CT scans at this facility use dose modulation, iterative reconstruction, and/or weight-based dosing when appropriate to reduce radiation dose to as low as reasonably achievable. Dictated by Burt Sheffield MD @ 01/12/2025 10:58:21 PM (Electronically Signed)
[2025-01-12 21:42] LABS: Lactate* 0.6 mmol/L (0.5-1.9)
[2025-01-12 21:46] LABS: Hematocrit* 39.4 % (37.0-53.0); Hemoglobin* 13.1 gm/dL (13.5-17.5); Immature Granulocytes Abs Auto 0.00 K/uL (0.00-0.30); Immature Granulocytes Pct Auto 0.2 %; Lymphocytes Absolute Auto 2.30 K/uL (0.90-2.90); Mean Corpuscular HGB Conc 33 gm/dL (32-36); Mean Corpuscular Hemoglobin 29 pg (26-34); Mean Corpuscular Volume 87 fL (80-100); RDW Coefficient of Variation % 11.7 % (11.5-15.5); Red Blood Count* 4.52 m/uL (4.30-5.90); White Blood Count* 11.59 K/uL (4.50-11.00)
[2025-01-12 21:47] LABS: Slide Review Reflex No
[2025-01-12 21:49] LABS: Appearance Urine Clear (Clear)
[2025-01-12 22:12] LABS: Albumin* 4.2 g/dL (3.3-5.0); Chloride* 102 mmol/L (96-114); Sodium* 138 mmol/L (135-149)
[2025-01-12 22:13] LABS: Potassium* 4.0 mmol/L (3.6-5.1)
[2025-01-12 22:15] LABS: Alanine Aminotransferase* 17 U/L (4-50); Aspartate Amino Transferase* 32 U/L (12-35); Blood Urea Nitrogen* 15 mg/dL (5-24); Creatinine* 1.0 mg/dL (0.5-1.5); Est. Creatinine Clearance* 120.96; Estimated Glomerular Filt Rate 103 ml/min
[2025-01-12 22:16] LABS: Alkaline Phosphatase* 94 U/L (40-150); Anion Gap 6 mEq/L (7-15); Bilirubin Total* 0.8 mg/dL (0.1-1.5); Calcium* 9.1 mg/dL (8.4-10.6); Carbon Dioxide* 30 mmol/L (20-32); Glucose* 101 mg/dL (60-115); Total Protein* 7.9 g/dL (6.0-8.3)
[2025-01-12 23:30] VITALS: BP 128/75; PULSE 68; RESP 16; TEMP 36.8; O2SAT 97
[2025-01-12] MEDS: PIPERACILLIN/TAZOBACTAM 3.375 GM in 0.9 % SODIUM CHLORIDE Mini-bag 100 ML IVPB (23:50)
[2025-01-13] VITALS (16 sets, daily range): BP systolic 122–159; BP diastolic 66–88; PULSE 53–74; RESP 14–18; TEMP 36.2–37.3; O2SAT 93–100; BMI 25.4; BMI 25.5
[2025-01-13] MEDS: 0.9 % SODIUM CH + KCL 20 mEq/L 1,000 ML 100 ML IV (00:09)
--- NOTE | 2025-01-13 01:11 | W.PM.TELEH&P ---
Telehealth- H&P: HPI History of Present Illness Date Seen: 01/13/25 Chief complaint: abdominal pain Narrative: Shaheed Penny is seen as an Interactive Telehealth visit. Shaheed Penny is a 29 year old male who is with past medical history of ulcerative colitis who is currently on balsalazide, presented to the emergency room with complaint of right lower quadrant pain. Patient reports that his pain started in periumbilical region on Wednesday and has since then moved to right lower quadrant. Patient has a decreased appetite as but denies any nausea vomiting. No fever or chills. No diarrhea or rectal bleeding. Patient reports that symptoms does not feel like ulcerative colitis. Patient went to urgent care and was sent to the emergency room. On arrival to emergency room patient vitals are stable. Lab workup shows white count of 11,000. Lactic acid was normal. LFTs normal. CT abdomen pelvis was done shows acute uncomplicated appendicitis. Surgery has been consulted. Patient was given empiric antibiotic. Patient was referred to hospital service for admission and with the planning of surgery tomorrow. Review of Systems Status of ROS: Reports: 10 or more systems reviewed and unremarkable except as noted in History and below [facility] Medical History Colitis ?K52.9 - Noninfective gastroenteritis and colitis, unspecified (ICD-10) GERD (gastroesophageal reflux disease) ?K21.9 - Gastro-esophageal reflux disease without esophagitis (ICD-10) Surgical History S/P anterior Bankart repair of left shoulder (02/19/11) ?Z98.890 - Other specified postprocedural states (ICD-10) ?Z87.828 - Personal history of other (healed) physical injury and trauma (ICD-10) History of arthroscopy of right shoulder (~12/2016) ?Z98.890 - Other specified postprocedural states (ICD-10) History of arthroscopy of right shoulder (12/20/19) ?Z98.890 - Other specified postprocedural states (ICD-10) Status post labral repair of shoulder (02/07/20) ?Z98.890 - Other specified postprocedural states (ICD-10) Social History Smoking Status: Never smoker Second hand tobacco smoke exposure: No How often do you have a drink containing alcohol: never AUDIT-C Alcohol total score: 0 Non-prescribed substance use: denies use Meds Home Medications and Allergies Home Medications ?Medication ?Instructions ?Recorded ?Confirmed ?Type balsalazide 750 mg capsule 2,250 mg PO 3XD 01/12/25 01/12/25 History Allergies Allergy/AdvReac Type Severity Reaction Status Date / Time No Known Drug Allergies Allergy Verified 01/12/25 23:09 Exam Narrative Exam Narrative: Physical Exam GENERAL: ?vital signs reviewed, well developed and nourished, in no distress HEENT: pupils are equal round and reactive to light, extraocular movements are grossly within normal limits and oral mucosa is moist. NECK: Supple without lymphadenopathy or thyromegaly according to nursing staff examination observation HEART: Regular rate and rhythm without any rubs, murmurs, or gallops. LUNGS: Clear to auscultation bilaterally with good air movement throughout ABDOMEN: Observation from nurse assisted exam, abdomen appears soft, RLQ tender w/o gaurding/rigidity. and nondistended with Positive bowel sounds noted. EXTREMITIES: Strength and sensation is observed to be grossly within normal limits in the upper and lower extremities.? No focal strength deficit is observed. SKIN:? Observed warm and dry with color normal Const Vital Signs, click to edit/add: Vital Signs - 24 hr 01/12/25 21:11 01/12/25 23:30 01/13/25 00:59 Temperature 98.2 F 98.2 F 98.2 F Pulse Rate [Pulse Oximeter] 60 68 68 Respiratory Rate 16 16 16 Blood Pressure [Right Upper Arm] 139/80 128/75 128/75 Pulse Oximetry 97 97 Oxygen Delivery Method Room Air Room Air Hospitalist - H&P: Result Labs Labs: Short CBC 01/12/25 Range/Units 21:37 WBC 11.59 H (4.50-11.00) K/uL Hgb 13.1 L (13.5-17.5) gm/dL Hct 39.4 (37.0-53.0) % Plt Count 199 (140-440) K/uL BMP 01/12/25 21:37 Sodium 138 Potassium 4.0 Chloride 102 Carbon Dioxide 30 BUN 15 Creatinine 1.0 Glucose 101 Calcium 9.1 Liver Function 01/12/25 Range/Units 21:37 Total Bilirubin 0.8 (0.1-1.5) mg/dL AST 32 (12-35) U/L ALT 17 (4-50) U/L Alkaline Phosphatase 94 (40-150) U/L Albumin 4.2 (3.3-5.0) g/dL Urine 01/12/25 Range/Units 21:45 Urine Color Yellow (Yellow) Urine Appearance Clear (Clear) Urine pH 7.5 (5.0-8.5) Ur Specific [place] 1.020 (1.000-1.030) Urine Protein Negative (Negative) Urine Glucose (UA) Negative (Negative) Assessment and Plan Assessment and plan (1) Acute appendicitis: Status: Acute Plan 29-year-old male with above-mentioned past medical history presented with abdominal pain was found to have acute uncomplicated appendicitis. 1. Acute appendicitis: Patient will be kept n.p.o. after midnight. Admit as inpatient. Continue empiric antibiotic. Plan for surgery in AM. Patient is hemodynamically stable 2. History of ulcerative colitis: Resume current medication postoperatively 3. N.p.o. SCD for DVT prophylaxis Patient is full code Telehealth Visit:? Today's History and Physical is provided via interactive telehealth by TAZ HIGGINS.? Patient is located at [facility].? Provider is located at [facility].? Nursing staff assisted with the patient's exam. The visit being done today meets criteria for a telehealth visit and the patient or patients parent/guardian is aware the visit is a telehealth visit. Total Time Spent Total Time Spent: 55 min Telehealth: Statement Statement Telehealth Visit: Today's History and Physical is provided via interactive telehealth by Taz Higgins MD.? Patient is located at [facility].? Provider is located at [facility].? Nursing staff assisted with the patient's exam. The visit being done today meets criteria for a telehealth visit and the patient or patient?s parent/guardian is aware the visit is a telehealth visit.
[2025-01-13] MEDS: PIPERACILLIN/TAZOBACTAM 3.375 GM in 0.9 % SODIUM CHLORIDE Mini-bag 100 ML IVPB (05:05)
--- NOTE | 2025-01-13 07:00 | PC.NURSE ---
End of shift report: Pt was admitted to Med/Surg at 0044. VSS. Afebrile. Rates pain from 4-5/10 in the upper abdomen, stating it is tolerable. Denies pain meds. Bowel sounds are active. Pt has been NPO since 0000. Pt is ind in room, call light within reach.?
[2025-01-13] MEDS: LACTATED RINGERS 1000 ML 1,000 ML 125 ML IV (09:15)
--- NOTE | 2025-01-13 09:35 | SUR.OPER ---
PATIENT QUESTIONS ANSWERED SATISFACTORILY PREOPERATIVELY. PATIENT BROUGHT TO OR #4 PER CART. Patient positioned supine on OR #4 bed. The perioperative team tucked left arm at patient side with the draw sheet. Right arm on the arm board. Final approval of positioning by surgeon.
[2025-01-13] MEDS: BUPIVACAINE 0.25% 30 ML 20 ML INJECTION (10:29)
--- NOTE | 2025-01-13 10:45 | PM.GSCN ---
History of Present Illness Consult details Date Seen: 01/13/25 Consult date: 01/13/25 Narrative: Patient was admitted from the emergency department last night for right-sided abdominal pain. The pain initially started on Wednesday and was more in his upper abdomen. Yesterday the pain became more severe and migrated to his right side, prompting him to come in. He has never had pain like this before. He has never had abdominal surgery before. No fevers at home. Decreased appetite. He does have a history of ulcerative colitis but has been having regular bowel movements. Nonsmoker. Otherwise healthy. Review of Systems Status of ROS: Reports: 10 or more systems reviewed and unremarkable except as noted in History and below [facility] Medical History Colitis ?K52.9 - Noninfective gastroenteritis and colitis, unspecified (ICD-10) GERD (gastroesophageal reflux disease) ?K21.9 - Gastro-esophageal reflux disease without esophagitis (ICD-10) Surgical History S/P anterior Bankart repair of left shoulder (02/19/11) ?Z98.890 - Other specified postprocedural states (ICD-10) ?Z87.828 - Personal history of other (healed) physical injury and trauma (ICD-10) History of arthroscopy of right shoulder (~12/2016) ?Z98.890 - Other specified postprocedural states (ICD-10) History of arthroscopy of right shoulder (12/20/19) ?Z98.890 - Other specified postprocedural states (ICD-10) Status post labral repair of shoulder (02/07/20) ?Z98.890 - Other specified postprocedural states (ICD-10) Social History What is your current living situation?: I presently have a place to live Problems where you live: no known problems Problems where you live details: n/a In the past 12 months, utilities in danger of being shut off: no In past 12 months, lack of transportation kept you from medical appts, meetings, work, or getting things needed for daily living: no In the past 12 mos, have been you worried that your food would run out before you had money to buy more?: never true In the past 12 mos, the food you bought just didn't last and you didn't have money to buy more?: never true Highest level of school completed/degree received: Bachelor's degree Smoking Status: Never smoker Second hand tobacco smoke exposure: No How often do you have a drink containing alcohol: monthly or less How often do you have six or more drinks on one occasion: Never AUDIT-C Alcohol total score: 1 Non-prescribed substance use: denies use Caffeine: Yes How often does anyone, including family, friends and others, physically hurt you: never How often does anyone, including family, friends and others, insult or talk down to you: never How often does anyone, including family, friends and others, threaten you with harm: never How often does anyone, including family, friends and others, scream or curse at you: never Meds Home Medications and Allergies Home Medications ?Medication ?Instructions ?Recorded ?Confirmed ?Type balsalazide 750 mg capsule 2,250 mg PO TID 01/12/25 01/13/25 History Allergies Allergy/AdvReac Type Severity Reaction Status Date / Time No Known Drug Allergies Allergy Verified 01/12/25 23:09 Exam Narrative: Exam Narrative: General: Alert and oriented, no acute distress Respiratory: Equal breath rise bilaterally, maintained on room air CV: Regular rhythm and rate Abdomen: Soft, some tenderness to palpation on the right side, no rebound or guarding. Const: Vital Signs, click to edit/add: Vital Signs - 24 hr 01/12/25 21:11 01/12/25 23:30 01/13/25 00:44 Temperature 98.2 F 98.2 F Pulse Rate [Left P ulse Oximeter] Pulse Rate [Pulse Oximeter] 60 68 Respiratory Rate 16 16 16 Blood Pressure [Ri ght Arm] Blood Pressure [Ri ght Upper Arm] 139/80 128/75 Pulse Oximetry 97 97 99 Oxygen Delivery Me thod Room Air Room Air Room Air 01/13/25 00:44 01/13/25 00:59 01/13/25 05:38 Temperature 98.6 F 98.2 F 99.1 F Pulse Rate [Left P ulse Oximeter] 62 63 Pulse Rate [Pulse Oximeter] 68 Respiratory Rate 16 16 16 Blood Pressure [Ri ght Arm] 137/84 131/66 Blood Pressure [Ri ght Upper Arm] 128/75 Pulse Oximetry 99 93 Oxygen Delivery Me thod Room Air Room Air 01/13/25 07:00 Temperature Pulse Rate [Left P ulse Oximeter] 67 Pulse Rate [Pulse Oximeter] Respiratory Rate 16 Blood Pressure [Ri ght Arm] 122/70 Blood Pressure [Ri ght Upper Arm] Pulse Oximetry 95 Oxygen Delivery Me thod Room Air Results Labs Labs: Abnormal lab results 01/12/25 01/12/25 Range/Units 21:37 21:45 WBC 11.59 H (4.50-11.00) K/uL Hgb 13.1 L (13.5-17.5) gm/dL Lymph % (Auto) 19.8 L (20-44) % Neut # (Auto) 8.00 H (1.7-7.0) K/uL [place] # (Auto) 1.00 H (0.00-0.90) K/UL Anion Gap 6 L (7-15) mEq/L C-Reactive Protein 5.9 H (0.5-1.0) mg/dL Urine Blood 3+ A (Negative) Urine WBC 5-10 A (0-5) Diabetes panel 01/12/25 Range/Units 21:37 Sodium 138 (135-149) mmol/L Potassium 4.0 (3.6-5.1) mmol/L Chloride 102 (96-114) mmol/L Carbon Dioxide 30 (20-32) mmol/L BUN 15 (5-24) mg/dL Creatinine 1.0 (0.5-1.5) mg/dL Glucose 101 (60-115) mg/dL Calcium 9.1 (8.4-10.6) mg/dL AST 32 (12-35) U/L ALT 17 (4-50) U/L Alkaline Phosphatase 94 (40-150) U/L Total Protein 7.9 (6.0-8.3) g/dL Albumin 4.2 (3.3-5.0) g/dL Calcium panel 01/12/25 Range/Units 21:37 Calcium 9.1 (8.4-10.6) mg/dL Albumin 4.2 (3.3-5.0) g/dL Pituitary panel 01/12/25 Range/Units 21:37 Sodium 138 (135-149) mmol/L Potassium 4.0 (3.6-5.1) mmol/L Chloride 102 (96-114) mmol/L Carbon Dioxide 30 (20-32) mmol/L BUN 15 (5-24) mg/dL Creatinine 1.0 (0.5-1.5) mg/dL Glucose 101 (60-115) mg/dL Calcium 9.1 (8.4-10.6) mg/dL Adrenal panel 01/12/25 Range/Units 21:37 Sodium 138 (135-149) mmol/L Potassium 4.0 (3.6-5.1) mmol/L Chloride 102 (96-114) mmol/L Carbon Dioxide 30 (20-32) mmol/L BUN 15 (5-24) mg/dL Creatinine 1.0 (0.5-1.5) mg/dL Glucose 101 (60-115) mg/dL Calcium 9.1 (8.4-10.6) mg/dL Total Bilirubin 0.8 (0.1-1.5) mg/dL AST 32 (12-35) U/L ALT 17 (4-50) U/L Alkaline Phosphatase 94 (40-150) U/L Total Protein 7.9 (6.0-8.3) g/dL Albumin 4.2 (3.3-5.0) g/dL All other labs normal. Imaging Abdomen CT scan report/results: report reviewed and image reviewed Progress Note:A&P Assessment and plan (1) Acute appendicitis: Status: Acute Plan The patient presented with a history, exam and imaging findings consistent with acute appendicitis. I discussed the treatment options with the patient including non-surgical and surgical options. I recommended laparoscopic appendectomy. The risks of surgery were reviewed with the patient including the risks of bleeding, post-operative wound or intra-abdominal infection, injury to abdominal structures and possible conversion to an open operation. We also discussed anesthetic complications including [place], stroke, respiratory failure and blood clots. The patient voiced an understanding of our conversation, had the opportunity to ask questions, agreed to accept the risks of surgery and asked that we proceed with surgery.
--- NOTE | 2025-01-13 10:48 | P.ANES_ITS ---
Anesthesia Charges Start Date/Time Anesthesia Start Date: 01/13/25 Anesthesia Start Time: 09:12 Stop Date/Time Anesthesia Stop Date: 01/13/25 Anesthesia Stop Time: 10:48 Summary Emergency: CONSUMER BANKER Coding CPT Codes CPT Codes: ANESTH SURG LOWER ABDOMEN - 57774 ([id number]) P2 - PATIENT W/MILD SYST DISEASE, QZ - CONSUMER BANKER SVC W/O INVENTORY CLERK BY Additional Codes: Summary - Emergency: CONSUMER BANKER ([id number])
--- NOTE | 2025-01-13 10:48 | P.GSOP_ITS ---
Operative Note Date of procedure: 01/13/25 Pre-op diagnosis: Acute appendicitis Post-op diagnosis: Same, non perforated Type of Procedure: Laparoscopic appendectomy Indications: Patient is a 29-year-old male who presented to the emergency department with right-sided abdominal pain. CT scan confirmed findings of acute, uncomplicated appendicitis. Risks and benefits of operative intervention were discussed at length with the patient. Risks included but was not limited to: Bleeding, infection, risk of damage to surrounding structures, possible need for additional procedures, possible need to convert to an open operation and postoperative complications such as pneumonia, pulmonary emboli or DE. All questions and concerns were addressed with the patient agreeing to proceed. Procedure Description: After discussing the risks and benefits of the procedure, the patient signed informed consent.? The operative site was marked and the patient was brought to the operating room and placed on the operating table in supine position.? Care was taken to pad the patient's pressure points.?? The patient was then intubated by anesthesia.?? The operative site was then prepped and draped in the usual sterile fashion.? A time-out was then performed. Entrance to the abdomen was obtained via a 5 mm optical trocar in the left upper quadrant. The abdomen was insufflated and briefly surveyed for any signs of injury. There were none. A 12 mm port was placed at the umbilicus as well as a 5 mm port in the left lower quadrant under direct vision. The patient was then placed in Trendelenburg position with the right side up. The small bowel was gently moved out of the way and the appendix was in view. The tip of the appendix was inflamed with the distal portion of the body adherent to the terminal ileum. This was bluntly dissected free, with a small amount of murky fluid noted around a thick rind. The small bowel was carefully examined, with no evidence of injury. The appendix was also densely adherent to the lateral abdominal wall. This was dissected with cautery and blunt dissection. The base of the appendix was identified, with no significant inflammation to it. Using a [place] a mesenteric window was created. A 45 mm Endo-TOYA purple load stapler was then used to transect the appendix at its base. The staple line was inspected, appeared healthy, intact and hemostatic. Inflammatory tissue around the body of the appendix was dissected free. A small portion of the mesentery was clipped with two 5 mm clips before being transected. In order to access the remaining portion of the mesoappendix a portion of the thick inflammatory rind was taken down with a 35 mm vascular staple load. A small bleeding vessel was controlled with a 5mm clip. The remaining mesoappendix was then taken with a 35 mm staple load, vascular. The appendix was intact with no evidence of p erforation. It was then removed from the abdomen using an Endo-Catch bag. The specimen was sent to pathology. The operative field was gently irrigated. Hemostasis was excellent at the end of the case. Additional fluid present in the pelvis was suctioned. All ports were then removed under direct visualization. The 12 mm port site fascia was closed with 0 Vicryl. The skin was then closed with absorbable subcuticular suture. Sterile dressings were then applied. Instrument sponge and needle counts were correct at the end of the case. The patient was then woken and transported to the PACU in stable condition. Findings: Inflamed appendix, thick rind. No evidence of perforation. Anesthesia: GETA Surgeon: Berenice Hurst MD Estimated blood loss (mL): 5 Specimen: Appendix Condition: stable Disposition: PACU
--- NOTE | 2025-01-13 10:48 | W.ANESCHARGE ---
Anesthesia Charges Start Date/Time Anesthesia Start Date: 01/13/25 Anesthesia Start Time: 09:12 Stop Date/Time Anesthesia Stop Date: 01/13/25 Anesthesia Stop Time: 10:48 Summary Emergency: PERL SOFTWARE ENGINEER Coding CPT Codes CPT Codes: ANESTH SURG LOWER ABDOMEN - 81444 ([id number]) P2 - PATIENT W/MILD SYST DISEASE, QZ - PERL SOFTWARE ENGINEER SVC W/O RN TRANSITIONAL BY Additional Codes: Summary - Emergency: PERL SOFTWARE ENGINEER ([id number])
[2025-01-13] MEDS: HYDROCODONE-ACETAMIN 5-325 MG 1 TAB PO ×2 (12:26→13:31)
--- NOTE | 2025-01-14 11:36 | PM.DS1 ---
DS: Providers Provider Date Seen: 01/13/25 Date of admission: 01/13/25 01:01 Primary care physician: Dang Mcintyre MD Admitting Clinician: Jason Higgins MD Attending Physician on discharge: Berenice Hurst MD DS: Summary Hospital Course Hospital Course: Patient was admitted to the hospital for laparoscopic appendectomy. Evidence of acute appendicitis, no evidence of perforation. He did well postoperatively. He was able to discharge same day once he was tolerating a regular diet, voiding independently and ambulating without difficulty. Time Spent with Patient Time attestation: Total time spent providing and/or coordinating discharge services: Exam Narrative: Exam Narrative: Please see exam from same date. Const: Vital Signs, click to edit/add: Vital Signs - 24 hr 01/13/25 11:48 01/13/25 12:03 01/13/25 12:18 Temperature 97.3 F L 97.5 F L Pulse Rate [Left P ulse Oximeter] 55 L 53 L 57 L Respiratory Rate 14 16 Blood Pressure [Le ft Arm] 137/73 133/72 132/75 Blood Pressure [Ri ght Arm] Pulse Oximetry 100 100 Oxygen Delivery Me thod Room Air 01/13/25 12:48 Temperature Pulse Rate [Left P ulse Oximeter] Respiratory Rate Blood Pressure [Le ft Arm] Blood Pressure [Ri ght Arm] 140/76 H Pulse Oximetry Oxygen Delivery Me thod Discharge Plan Discharge Disposition: Home, Self-Care Date of Admission: 01/13/25 01:01 Attending Provider on Discharge: Berenice Hurst Primary Care Provider: Dang Mcintyre Condition: Improved Anticipated Discharge Date/Time: 01/13/25 18:00 Discharge Medications: New hydrocodone-acetaminophen 5-325 mg tablet 1 tab PO Q6H PRN (Reason: pain) Qty: 15 0RF Continued balsalazide 750 mg capsule 2,250 mg PO TID Discharge Orders: Discharge Order (Routine); Ordered 01/13/25 Ordered By: Berenice Hurst Patient Education: Hydrocodone/Acetaminophen (By mouth), Senna (By mouth), NH+C Post-Operative Instructions: Appendectomy Additional Instructions: You were prescribed a narcotic pain medication. In addition you may supplement with Tylenol and/or ibuprofen. Be sure to not exceed greater than 4 g of Tylenol in a 24 hour period. While on narcotic pain medicine please take stool softeners. A prescription of stool softeners has been sent to the pharmacy. Stop if having greater than 2 stools per day. You have Steri-Strips dressings in place, allow these to fall off on their own. Okay to shower starting tomorrow. Do not soak in a bath or swim for 2 weeks. Follow-up with Dr. Hurst in 2-3 weeks. Please call if you are experiencing severe pain, nausea, vomiting, difficulty urinating, fever or not had a bowel movement in 4 days after surgery. Activity Level: No strenuous activity Activity Detail: Activity as tolerated. Avoid strenuous activity. No lifting greater than 20 lb for 2 weeks. Discharge Diet: Regular Follow Up Appointments: Berenice Hurst MD [Staff Physician, General Surgery] - 02/01/25 3:00 pm Referral Note: Dang Mcintyre MD [Primary Care Provider, Family Practice] Forms: [facility] Bel[facility], [facility] Info Instructions
== END 2025-01-13 14:15 | disposition home or self-care (01) | DRG 225 ==
LOC: ED 23:27 → MEDSURG 01-13 08:17 → ED 01-15 15:36 → MEDSURG 01-15 15:37
PROVIDERS: Surgery; Admitting Provider Internal Medicine; Emergency Provider Family Medicine; PCP Family Medicine; Visit Provider Family Medicine
PROC: 0DTJ4ZZ Resection of Appendix, Percutaneous Endoscopic Approach (ICD-10-PCS; CPT 44970; principal; 2025-01-13 09:15)
DX: K35.80 Unspecified acute appendicitis (principal); K51.90 Ulcerative colitis, unspecified, without complications; K21.9 Gastro-esophageal reflux disease without esophagitis; Z79.899 Other long term (current) drug therapy
CPT/HCPCS: 00840; 36415; 74177; 80053; 81001; 83605; 83690; 85025; 86140; 87086; 99140; 99284; 99285; A9270; J0330; J0665; J1100; J1171; J2250; J2405; J2543; J2704; J3010; J3490; J7120; Q9967